=== PATIENT | male | born 1990 | race Caucasian/White ===

== ENCOUNTER 2017-08-08 18:20 | Emergency (ER) | payer SELFPAY ==
--- NOTE | 2017-08-08 18:40 | ED Physician Documentation ---
General Adult - HISTORIAN Historian: patient - HPI Stated Complaint: feeling like a bubble in his chest and fluid from it Chief Complaint: Chest Pain Onset: hours (1) Timing: better Severity: mild Modifying Factors: none Quality: like a bubble burst and fluid ran in my chest Further Comments: no Last known Well Date: 08/08/17 Last Known Well Time: 17:00 Last known Well Code/Unknown Code: Unknown - ROS CONST: no problems EYES/ENT: none CVS/RESP: chest pain. denies: shortness of breath, cough GI/: none. denies: problems urinating, vomiting, nausea MS/SKIN/LYMPH: none NEURO/PSYCH: anxiety, depression. denies: headache, fainting, dizziness, tingling, numbness, difficulty walking - PAST HX Past History: other (had seizures as a child (resolved per his report), anxiety (he is buying xanax from someone) ) Surgeries/Procedures: other (T&A) Allergies/Adverse Reactions: Allergies Allergy/AdvReac Type Severity Reaction Status Date / Time Penicillins Allergy Verified 08/08/17 18:30 Home Medications: Ambulatory Orders Medication Instructions Recorded NK [NK] 08/08/17 - SOCIAL HX Smoking History: cigarettes Alcohol Use: none Drug Use: none - FAMILY HX Family History: No - REVIEWED ASSESSMENTS Nursing Assessment Reviewed: Yes Vitals Reviewed: Yes ED Results Lab/Radiology - Radiology Radiology Impressions: Examination: PA and lateral chest. History: Evaluate lung barrow. Comparison exam: None provided Findings: PA lateral chest demonstrate a normal cardiac and mediastinal silhouette. No focal infiltrate. No blunting of the costophrenic margins. Osseous structures are appropriate for age. Impression: No acute pulmonary process. Electronically signed on Aug 08, 2017 7:02:38 PM CDT by: Eduin Galvez General Adult Physical Exam - PHYSICAL EXAM GENERAL APPEARANCE: mild distress EENT: eye inspection normal, ENT inspection normal, JAMIL NECK: normal inspection RESPIRATORY: no resp distress, chest non-tender, breath sounds normal CVS: reg rate & rhythm, heart sounds normal ABDOMEN: soft, no organomegaly, normal bowel sounds SKIN: warm/dry, normal color EXTREMITIES: non-tender, normal range of motion NEURO: oriented X3, CN's nml as tested, motor nml
[2017-08-08] MEDS ORDERED: 0.9 % SODIUM CHLORIDE 1,000 ML IV ONE (18:43)
[2017-08-08 19:08] LABS: BASOPHILS % 0.3 (0.0-1.5); EOSINOPHILS % 0.9 % (0.0-6.8); MEAN CORPUSCULAR HEMOGLOBIN 30.6 pg (28.0-34.0); MONOCYTES % 5.1 % (0.0-11.0); NEUTROPHILS # 8.8 # k/uL (1.4-7.7)
[2017-08-08 19:18] LABS: eGFR (African) > 60; eGFR (Non-African) > 60
[2017-08-08 20:58] VITALS: BP 136/67
--- NOTE | 2017-08-08 21:06 | Diagnostic Imaging Report ---
MIREYA BARNETT [facility] [address] [facility] [address] [place], [place]. [address] Report Submission Date: Aug 08, 2017 7:02:38 PM CDT Patient Study Name: ELIANE MILES Date: Aug 08, 2017 6:53:41 PM CDT Modality Type: CR Gender: M Description: CHEST : 89 Institution: [facility] Physician: MIREYA BARNETT Examination: PA and lateral chest. History: Evaluate lung barrow. Comparison exam: None provided Findings: PA lateral chest demonstrate a normal cardiac and mediastinal silhouette. No focal infiltrate. No blunting of the costophrenic margins. Osseous structures are appropriate for age. Impression: No acute pulmonary process. Electronically signed on Aug 08, 2017 7:02:38 PM CDT by: Eduin LANDEROS
[2017-08-09 05:34] LABS: AMPHETAMINE NEGATIVE ng/mL (<1000); BARBITURATES NEGATIVE ng/mL (<300); CANNABINOIDS NON NEGATIVE ng/mL (< 50); COCAINE NEGATIVE ng/mL (<300); METHAMPHETAMINE NEGATIVE ng/mL (<1000); METHYLENEDIOXYMETHAMPHETAMINE NEGATIVE ng/mL (<500); OPIATES NEGATIVE ng/mL (<300)
[2017-08-09 05:35] LABS: APPEARANCE,URINE CLEAR (CLEAR); COLOR,URINE YELLOW (YELLOW); OCCULT BLOOD,URINE TRACE-INTACT (NEGATIVE); UROBILINOGEN URINE 0.2 Eu (0.2-1.0)
== END 2017-08-08 20:25 ==
LOC: ED 18:20
DX: R07.9 Chest pain, unspecified (principal)
CPT/HCPCS: 71020; 80053; 80320; 80377; 81002; 85025; J7030; 96360; 99283; G0480; G0481; S1016

== ENCOUNTER 2017-09-19 16:27 | Emergency (ER) | payer OTHER ==
--- NOTE | 2017-09-19 16:34 | ED Physician Documentation ---
General Adult - HISTORIAN Historian: patient, parent - HPI Stated Complaint: tachycardia Chief Complaint: Palpitations Onset: other (this is an on and off issue for "months" ) Timing: better Severity: moderate Further Comments: yes (Per pt he was seen "a few months ago " and the tachycardia has not returned since due to he stopped smoking "weed" and stopped drinking "alcohol" and he states the symptoms stopped and he then shows his pulse he is tracking on his phone b/c he feels the heart rate is high. The pulse tracker on 4 occasions does show 120-149 and he does report he had feelings of "fast heart rate" at this time. he did track it. He denies any further drug or alcohol use. He denies dizziness. "I just feel like something is wrong" He does note the heart rate feels "fast and funny" He denies any chest pain, no nasuea or vomiting, no sweating. Mom (who is at bedside) does report directly before coming in to the hosptial today he did lock his keys in his car. He does feel he is frequently anxious . Mom is concerned due to strong family history of cardiac issues and Pt father had a tumor that was metastaic from his testicle to his heart) Last known Well Code/Unknown Code: Unknown - ROS CONST: denies: fever, recent illness EYES/ENT: denies: problems with vision CVS/RESP: denies: chest pain, shortness of breath, cough GI/: denies: abdominal pain, vomiting, nausea, diarrhea NEURO/PSYCH: anxiety. denies: headache, fainting, dizziness, tingling, numbness , difficulty walking, difficulty with speech - PAST HX Past History: none Other History: none Surgeries/Procedures: none Immunizations: referred to PCP Allergies/Adverse Reactions: Allergies Allergy/AdvReac Type Severity Reaction Status Date / Time Penicillins Allergy Verified 08/08/17 18:30 Home Medications: Ambulatory Orders Medication Instructions Recorded NK [NK] 08/08/17 - SOCIAL HX Smoking History: non-smoker Alcohol Use: rarely Drug Use: marijuana (says not in two months ) - FAMILY HX Family History: No - VITAL SIGNS Vital Signs: Vital Signs Temp Pulse Resp BP Pulse Ox 136/67 08/08/17 20:25 - REVIEWED ASSESSMENTS Nursing Assessment Reviewed: Yes Vitals Reviewed: Yes ED Results Lab/Radiology - Radiology Radiology Impressions: Examination: PA and lateral chest. History: Evaluate lung barrow. Comparison exam: 08 August 2017 Findings: PA lateral chest demonstrate a normal cardiac and mediastinal silhouette. No focal infiltrate. No blunting of the costophrenic margins. Osseous structures are appropriate for age. Impression: No acute pulmonary process. Electronically signed on Sep 19, 2017 5:10:57 PM [employer] by: Eduin Galvez General Adult Physical Exam - PHYSICAL EXAM GENERAL APPEARANCE: no distress EENT: eye inspection normal, JAMIL NECK: normal inspection RESPIRATORY: no resp distress, chest non-tender, breath sounds normal CVS: reg rate & rhythm, heart sounds normal, equal pulses, no murmur ABDOMEN: soft, no organomegaly, normal bowel sounds SKIN: warm/dry, normal color EXTREMITIES: non-tender, normal range of motion, no evidence of injury, no edema NEURO: oriented X3, CN's nml as tested, motor nml, sensation nml, mood/affect nml Discharge Clincal Impression: Tachycardia Referrals: Primary Doctor,No [Primary Care Provider] - 2 Days Comments: Not to take meds that are not prescribed to him Find a PCP and get a physical for possible holter monitor Condition: Stable Disposition: 01 HOME, SELF-CARE Decision to Admit: NO Date of Decison to Admit: 09/19/17 Decision Time: 18:00
[2017-09-19 16:58] LABS: BASOPHILS % 0.2 (0.0-1.5); EOSINOPHILS % 1.9 % (0.0-6.8); MEAN CORPUSCULAR HEMOGLOBIN 30.3 pg (28.0-34.0); MEAN CORPUSCULAR VOLUME 89.3 fl (80.0-100.0); MONOCYTES % 4.7 % (0.0-11.0); NEUTROPHILS # 7.2 # k/uL (1.4-7.7)
[2017-09-19 17:24] LABS: eGFR (African) > 60; eGFR (Non-African) > 60
[2017-09-19] MEDS: 0.9 % SODIUM CHLORIDE 1,000 ML IV ONE (17:32)
[2017-09-19 18:18] VITALS: BP 135/68
--- NOTE | 2017-09-19 18:52 | Diagnostic Imaging Report ---
MIREYA BARNETT~ [facility] [address] [facility] [address] [place], [place]. [address] ~ ~ ~ ~ Report Submission Date: Sep 19, 2017 5:10:57 PM [employer] Patient ~ Study Name: ELIANE MILES ~ Date: Sep 19, 2017 4:54:16 PM [employer] ~ Modality Type: CR Gender: M ~ Description: CHEST : 89 ~ Institution: [facility] Physician: MIREYA BARNETT ~ ~ ~ Examination: PA and lateral chest. History: Evaluate lung barrow. Comparison exam: 08 August 2017 Findings: PA lateral chest demonstrate a normal cardiac and mediastinal silhouette. No focal infiltrate.~ No blunting of the costophrenic margins.~ Osseous structures are appropriate for age. Impression: No acute pulmonary process. ~ Electronically signed on Sep 19, 2017 5:10:57 PM [employer] by: Eduin LANDEROS
[2017-09-20 07:03] LABS: AMPHETAMINE NEGATIVE ng/mL (<1000); BARBITURATES NEGATIVE ng/mL (<200); CANNABINOIDS NEGATIVE ng/mL (<50); COCAINE NEGATIVE ng/mL (<300); METHAMPHETAMINE NEGATIVE ng/mL (<1000)
== END 2017-09-19 18:16 | disposition home or self-care (01) ==
LOC: SUPCPDRO 16:27 → ED 16:27
DX: R00.0 Tachycardia, unspecified (principal)
CPT/HCPCS: 71020; 80053; 84484; 85025; J7030; 80377; 96360; 99283; G0481; S1016

== ENCOUNTER 2017-09-25 14:11 | Outpatient (CLI) | payer OTHER | END 2017-09-25 14:20 | LOC: CARD 14:11 | PROVIDERS: ATTEND Internal Medicine Cardiovascular Disease | DX: R00.0 Tachycardia, unspecified (principal); E66.9 Obesity, unspecified | CPT/HCPCS: 99213 ==

== ENCOUNTER 2017-10-04 09:40 | Outpatient (CLI) | payer OTHER | END 2017-10-04 09:45 | LOC: LAB 09:40 | PROVIDERS: ATTEND Physician Assistant | DX: R00.0 Tachycardia, unspecified (principal) | CPT/HCPCS: 36415; 84443 ==